=== PATIENT | female | born 1960 | race Caucasian/White ===

== ENCOUNTER 2016-10-18 08:04 | Emergency (ER) | payer OTHER ==
[2016-10-18 08:10] VITALS: BMI 27.4
--- NOTE | 2016-10-18 08:16 | PDOC ---
History of Present Illness - General Chief Complaint: Back Pain Stated Complaint: LOWER BACK PAIN Time Seen by Provider: 10/18/16 08:16 History Source: Patient Exam Limitations: No Limitations - History of Present Illness Initial Comments: 10/18/16 08:46 CHIEF COMPLAINT: Low back pain PCP: Dr. Rodgers HISTORY OF PRESENT ILLNESS: 55 year old female presented to the ED with the chief complaints of low back pain. A/c to the patient, she had low back pain since a week, progressively getting worse since last night, radiating towards the suprapubic area, 15/10 in intensity. Denies urinary symptoms, no tingling/numbness, no fever, chills, rigors or sweating. Patient took tylenol and Ibuprofen without symptomatic relief. Patient has a history of herniated disc, has been on Physical therapy which helped her. Had an MRI of her back more than 5 years ago. Recent Travel: None PAST MEDICAL HISTORY: Disc herniation, Hypothyroidism, Kidney stones (removed) PAST SURGICAL HISTORY: As mentioned above Social History: Smoking: Denies Alcohol: Denies Drugs: Denies Family History: Unknown. Allergies: NKDA Past History - Past Medical History Allergies/Adverse Reactions: Allergies Allergy/AdvReac Type Severity Reaction Status Date / Time No Known Allergies Allergy Verified 10/18/16 08:10 Home Medications: Ambulatory Orders Acetaminophen W/ Codeine #3 [Tylenol # 3 -] 1 tab PO Q4H PRN 10/18/16 Diabetes: No HTN: No Thyroid Disease: Yes (Hypothyroid) - Psycho/Social/Smoking Cessation Hx Suicidal Ideation: No Smoking Status: No Smoking History: Never smoked Number of Cigarettes Smoked Daily: 0 Review of Systems - Review of Systems Able to Perform ROS?: Yes Comments:: 10/18/16 09:04 CONSTITUTIONAL:~ Absent: fever, chills, diaphoresis, generalized weakness, malaise, loss of appetite HEENT:~ Absent: rhinorrhea, nasal congestion, throat pain, throat swelling, difficulty swallowing, mouth swelling, ear pain, eye pain, visual Changes CARDIOVASCULAR:~ Absent: chest pain, syncope, palpitations, irregular heart rate, lightheadedness , peripheral edema RESPIRATORY:~ Absent: cough, shortness of breath, dyspnea with exertion, orthopnea, wheezing, stridor, hemoptysis GASTROINTESTINAL: Absent: abdominal pain, abdominal distension, nausea, vomiting, diarrhea, constipation, melena, hematochezia GENITOURINARY:~ Absent: dysuria, frequency, urgency, hesitancy, hematuria, flank pain, genital pain MUSCULOSKELETAL: Present: Back pain Absent: myalgia, arthralgia, joint swelling SKIN:~ Absent: rash, itching, pallor HEMATOLOGIC/IMMUNOLOGIC:~ Absent: easy bleeding, easy bruising, lymphadenopathy, frequent infections ENDOCRINE: Absent: unexplained weight gain, unexplained weight loss, heat intolerance, cold intolerance NEUROLOGIC:~ Absent: headache, focal weakness or paresthesias, dizziness, unsteady gait, seizure, mental status changes, bladder or bowel incontinence PSYCHIATRIC:~ Absent: anxiety, depression, suicidal or homicidal ideation, hallucinations. Is the patient limited [place] proficient: No *Physical Exam - Vital Signs Last Vital Signs Temp Pulse Resp BP Pulse Ox 97.4 F L 68 18 141/86 99 10/18/16 08:07 10/18/16 08:07 10/18/16 08:07 10/18/16 08:07 10/18/16 08:07 - Physical Exam Comments: 10/18/16 09:15 PE: GENERAL: Awake, alert, and fully oriented, in no acute distress HEAD: No signs of trauma EYES: PERRLA, EOMI, sclera anicteric, conjunctiva clear ENT: Auricles normal inspection, hearing grossly normal, nares patent, oropharynx clear without exudates. Moist mucosa NECK: Normal ROM, supple, no lymphadenopathy, JVD, or masses LUNGS: Breath sounds equal, clear to auscultation bilaterally. No wheezes, and no crackles.. HEART: Regular rate and rhythm, normal S1 and S2, no murmurs, rubs or gallops ABDOMEN: Soft, nontender, normoactive bowel sounds. No guarding, no rebound. No masses EXTREMITIES: Normal range of motion, no edema. No clubbing or cyanosis. No cords, erythema, or tenderness Back: Tenderness over the lumbar and sacral paraspinal area. Left straight leg raising test positive. NEUROLOGICAL: Cranial nerves II through XII grossly intact. Normal speech, normal gait SKIN: Warm, Dry, normal turgor, no rashes or lesions noted. Medical Decision Making - Medical Decision Making 10/18/16 07:40 Patient seen and examined at bed side. Vitals noted, unremarkable. Patient looks comfortable. Physical findings positive for left straight leg raising test. Will order x-ray of lumbar/spine stat IV Torodol 30mg. Differential diagnosis: Musculoskeleta origin; Exaggerated Disc herniation; Epidural abscess 10/18/16 8:30 Patient reassessed. Low back pain is better. X-ray lumbar spine: No acute pathology Plan: If low back pain resolves, will discharge the patient for follow up with orthopedics. 10/18/16 10:38 Patient feels much better. Can move without discomfort in her back Clinical Impression/Plan: Back pain most likely due to musculoskeletal origin vs exaggerated disc herniation Patient denies any urinary symptoms, no changes in bowel movements, no fever hence Epidural abscess less likely. x ray lumbar spine: There is some DJD, with some minimal vertebral wedging Intravertebral disc space are preserved No signs of blastic or lytic changes, no sign of fracture or subluxation Patient feels much better after pain medication , is able to lie in supine position, move her back without discomfort. Patient is hemodynamically stable and can be discharged on Motrin and Flexeril She has been advised to visit Dr. Rodgers within 24-48 hours or to return to the Emergency Department if symptoms worsen or if any NEW symptoms develop. Illness, Investigation and Plan of care explained to the patient. She verbalized understanding. Case seen and examined with Dr. Beltran *DC/Admit/Observation/Transfer Diagnosis at time of Disposition: Back pain - Discharge Dispostion Disposition: HOME Condition at time of disposition: Guarded Admit: No - Patient Instructions Printed Discharge Instructions: Low Back Pain Additional Instructions: Your x-ray of the back doesn't show any acute pathology. Please visit Dr. Rodgers within 24-48 hours with the discharge packet. Your low back pain is most likely musculoskeletal origin or it could be due to exaggerated disc herniation. Make sure you take over the counter Motrin and Flexeril if you have pain. Please return to the Emergency Department if symptoms worsen or if you develop NEW symptom.
[2016-10-18] MEDS ORDERED: KETOROLAC TROMETHAMINE 30 MG/1 ML VIAL IVPUSH ONE (08:44)
[2016-10-18] MEDS ORDERED: HYDROmorphone HCL CARPU-JECT 1 MG/1 ML DISP.SYRIN IVPB ONE (08:45)
[2016-10-18] MEDS ORDERED: KETOROLAC TROMETHAMINE 30 MG/1 ML VIAL IM ONE (08:52)
[2016-10-18] MEDS ORDERED: CYCLOBENZAPRINE HCL 10 MG TABLET (FP) ONE (08:52)
[2016-10-18] MEDS ORDERED: KETOROLAC TROMETHAMINE 60 MG/2 ML VIAL ONE (08:52)
--- NOTE | 2016-10-18 08:52 | PDOC ---
Attending Attestation - Resident Resident Name: EneidaCharley - ED Attending Attestation I have performed the following: I have examined & evaluated the patient, The case was reviewed & discussed with the resident, I agree w/resident's findings & plan - HPI HPI: 10/18/16 08:49 55-year-old female with a past medical history of hypothyroidism, kidney stones , and chronic low back issues due to herniated discs She gets chronic back pain off and on, and her last MRI was approximately 5 years ago Patient is complaining of one-week of the spontaneous onset of exacerbation of her low back pain, which is worse with musculoskeletal maneuvers She denies any fall or direct trauma to the area She states that the pain is been gradually increasing She denies any bowel or bladder symptoms, or saddle anesthesia She denies any numbness or tingling in her legs She denies any weakness in her legs She denies any fevers or chills, or any recent urinary tract instrumentation She denies any urine or bowel symptoms She denies any abdominal pain She states she is walking okay She denies any kidney or flank pain - Physicial Exam PE: 10/18/16 08:54 Physical exam Last Vital Signs Temp Pulse Resp BP Pulse Ox 97.4 F L 68 18 141/86 99 10/18/16 08:07 10/18/16 08:07 10/18/16 08:07 10/18/16 08:07 10/18/16 08:07 GENERAL: The patient is awake, alert, and fully oriented, and in no apparent distress. HEAD: Normal with no signs of trauma. NECK: Normal range of motion, supple LUNGS: Breath sounds equal, clear to auscultation bilaterally. No wheezes, and no crackles. HEART: Regular rate and rhythm, normal S1 and S2 without murmur, rub or gallop. ABDOMEN: Soft, nontender, normoactive bowel sounds. No guarding, no rebound. No masses appreciated. EXTREMITIES: Normal range of motion, no edema. No clubbing or cyanosis. No cords, erythema, or tenderness. BACK: There is no point tenderness on the T-spine or LS-spine There is bilateral paraspinal muscle spasm and tenderness in the lumbar sacral region There is no CVA tenderness NEUROLOGICAL: Motor strength is 5 out of 5 in the lower extremities bilaterally , with full dorsi flexion and plantar flexion of the feet bilaterally and normal straight leg raising bilaterally Sensation is intact in the lower extremities bilaterally There is negative straight leg raising bilaterally for numbness or tingling PSYCH: Normal mood, normal affect. SKIN: Warm, Dry, - Medical Decision Making 10/18/16 08:57 Exacerbation of chronic recurrent low back pain 10/18/16 10:38 LS-spine series There is some DJD, with some minimal vertebral wedging Intravertebral disc space are preserved No signs of blastic or lytic changes, no sign of fracture or subluxation Patient feeling much better after Motrin and Flexeril Laying flat, moving around well, states that she feels much better We will discharge to home with Motrin and Flexeril, and patient will call Dr. Curtis tomorrow morning to be seen in 24-48 hours Impression - exacerbation of chronic recurrent back pain without alarm symptoms
[2016-10-18] MEDS ORDERED: CYCLOBENZAPRINE HCL 10 MG TABLET (FP) PO ONE (08:53)
[2016-10-18 10:57] VITALS: BP 128/77; PULSE 80; TEMP 98.6
== END 2016-10-18 10:55 | disposition home or self-care (01) ==
LOC: JER 08:04
PROC: 3E0233Z Introduction of Anti-inflammatory into Muscle, Percutaneous Approach (ICD-10-PCS; principal; 2016-10-18)
DX: M54.5 Low back pain (principal); E03.9 Hypothyroidism, unspecified
CPT/HCPCS: 72100-TC; 96372; 99284-25

== ENCOUNTER 2019-06-06 17:51 | Emergency (ER) | payer OTHER ==
--- NOTE | 2019-06-06 18:00 | PDOC ---
Rapid Medical Evaluation Time Seen by Provider: 06/06/19 17:52 Medical Evaluation: Allergies Allergy/AdvReac Type Severity Reaction Status Date / Time No Known Allergies Allergy Verified 10/18/16 08:10 06/06/19 17:59 CC: Right ankle pain s/p slip and fall PE: No focal findings. Ambulatory with steady gait Orders: xray, ice Patient will proceed to the ER for further evaluation. Discharge Disposition - Diagnosis Right ankle pain - Referrals - Patient Instructions - Post Discharge Activity
[2019-06-06 18:03] VITALS: BP 123/76; PULSE 72; TEMP 97.6; BMI 26.1
[2019-06-06] MEDS ORDERED: ACETAMINOPHEN 500 MG TABLET (FP) PO ONE (18:38)
--- NOTE | 2019-06-06 18:42 | PDOC ---
History of Present Illness - General Chief Complaint: Pain, Acute Stated Complaint: RT FOOT PAIN Time Seen by Provider: 06/06/19 17:52 - History of Present Illness Initial Comments: 06/06/19 18:38 58-year-old female with a past medical history of hypothyroidism presents for evaluation of right foot pain. She describes an inversion type injury while going down the steps about 7 days ago she has had persistent pain about the lateral aspect of the right foot. Past History - Past Medical History Allergies/Adverse Reactions: Allergies Allergy/AdvReac Type Severity Reaction Status Date / Time No Known Allergies Allergy Verified 10/18/16 08:10 Home Medications: Ambulatory Orders Acetaminophen W/ Codeine #3 [Tylenol # 3 -] 1 tab PO Q4H PRN 10/18/16 Cyclobenzaprine HCl [Flexeril 10 mg] 10 mg PO TID PRN #10 tablet 10/18/16 Cyclobenzaprine HCl [Amrix] 15 mg PO TID PRN #15 cap.er.24h 10/19/16 COPD: No Diabetes: No HTN: No Thyroid Disease: Yes (Hypothyroid) - Immunization History Immunization Up to Date: No - Psycho Social/Smoking Cessation Hx Smoking Status: No Smoking History: Never smoked Have you smoked in the past 12 months: No Number of Cigarettes Smoked Daily: 0 Information on smoking cessation initiated: No Hx Alcohol Use: No Drug/Substance Use Hx: No Review of Systems - Review of Systems Musculoskeletal: Yes: See HPI *Physical Exam - Vital Signs Last Vital Signs Temp Pulse Resp BP Pulse Ox 97.6 F 72 16 123/76 98 06/06/19 18:00 06/06/19 18:00 06/06/19 18:00 06/06/19 18:00 06/06/19 18:00 - Physical Exam Comments: 06/06/19 18:39 Right foot skin color and temperature are normal there is tenderness at the base of the fifth metatarsal. Navicular, lateral malleolus, medial malleolus, ATFL distal fibula, all the way up its proximal course to the knee all nontender full range of motion of the ankle no gross sensorimotor deficits neurovascular intact. Medical Decision Making - Medical Decision Making 06/06/19 18:40 There appears to be a subtle oblique lucency best seen on lateral at the fifth metatarsal just distal to the styloid. This corresponds to the area of her tenderness Bales wrap [place] shoe weightbearing as tolerated follow-up with orthopedics Discharge - Discharge Information Problems reviewed: Yes Clinical Impression/Diagnosis: Foot fracture, right Clinical Impression/Diagnosis: (Ruled Out): Right ankle pain Condition: Stable Disposition: HOME - Admission No - Follow up/Referral Referrals: Mahamed Sifuentes DO [Staff Physician] - - Patient Discharge Instructions Additional Instructions: May weight-bear as tolerated with a hard sole shoe and crutches please leave the Bales wrap in place until seen by orthopedic surgery. Tylenol for pain. Avoid anti-inflammatories as they may delay bone healing. Return to the emergency room should symptoms worsen. And without fail, please follow-up with orthopedic surgery in 1 to 2 days for further evaluation and treatment options. - Post Discharge Activity
[2019-06-06] MEDS ORDERED: ACETAMINOPHEN 500 MG TABLET (FP) ONE (18:43)
== END 2019-06-06 19:02 | disposition home or self-care (01) ==
LOC: JERFT 17:51
DX: S92.351A Displaced fracture of fifth metatarsal bone, right foot, initial encounter for closed fracture (principal); W10.8XXA Fall (on) (from) other stairs and steps, initial encounter; Y93.89 Activity, other specified; Y92.038 Other place in apartment as the place of occurrence of the external cause; Y99.8 Other external cause status; E03.9 Hypothyroidism, unspecified
CPT/HCPCS: 73610-TC-RT-FY; 73630-TC-RT-FY; 99281-25